=== PATIENT | female | born 1965 | race African-American/Black ===

== ENCOUNTER 2019-03-06 13:56 | Emergency (ER) | payer MEDICAID ==
[~2019-03-06] VITALS: Ht 165.1 cm; Wt 64.0 kg
[2019-03-06] MEDS ORDERED: SODIUM CHLORIDE 0.9% 1,000 ML IV ONE (14:11)
[2019-03-06] MEDS ORDERED: CLINDAMYCIN 600 MG in DEXTROSE 5% WATER 50 ML IV ONE (14:15)
[2019-03-06] MEDS ORDERED: ONDANSETRON HCL 4MG/2ML INJ IV STA (14:50)
[2019-03-06] MEDS ORDERED: MORPHINE SULFATE 4 MG/ML CPJ (NOT FOR IM USE) IV STA (14:50)
[2019-03-06 15:04] LABS: BASOPHILS % 0.5 % (0.0-2.0); HEMATOCRIT. 37.2 % (36.0-48.0); HEMOGLOBIN. 12.2 g/dL (12.0-16.0); LYMPHOCYTES % 17.5 % (20.0-50.0); MEAN CORPUSCULAR VOLUME 88.1 fL (81.0-99.0); MONOCYTES % 14.2 % (2.0-8.0); NEUTROPHILS % 67.8 % (40.0-76.0); PLATELET 228 x1000/uL (130-400); RED BLOOD CELL COUNT 4.22 mill/uL (4.2-5.4); RED CELL DISTRIBUTION WIDTH 19.5 % (11.6-14.6)
[2019-03-06 15:11] LABS: CHLORIDE 106 mEq/L (98-107)
[2019-03-06 15:15] LABS: INR 1.1; PROTHROMBIN TIME 10.9 sec (9.6-11.0)
[2019-03-06] MEDS ORDERED: CLINDAMYCIN 600MG PREMIX 50 ML IV SCH (15:15)
[2019-03-06] MEDS ORDERED: KETOROLAC 15MG/ML VIAL IV ONE (17:15)
[2019-03-06 18:15] VITALS: BP 120/82
[2019-03-06] MEDS ORDERED: IOHEXOL-300 100 ML BOTTLE ONE (19:24)
== END 2019-03-06 18:33 | disposition home or self-care (01) ==
LOC: ER 14:03
DX: K04.7 Periapical abscess without sinus (principal); R68.84 Jaw pain; J45.909 Unspecified asthma, uncomplicated; I10 Essential (primary) hypertension; Z88.3 Allergy status to other anti-infective agents; Z89.9 Acquired absence of limb, unspecified
CPT/HCPCS: 36415; 70491; 80053; 85025; 85610; 96365; 96375; 99284; J1885; J2270; J2405; J3490; J7030; Q9967; J7060

== ENCOUNTER 2019-03-29 18:18 | Emergency (ER) | payer MEDICAID ==
[~2019-03-29] VITALS: Ht 162.6 cm; Wt 49.0 kg
[2019-03-29] MEDS ORDERED: ACETAMINOPHEN WITH CODEINE 300/30MG TABLET PO STA (18:42)
[2019-03-29] MEDS ORDERED: ALBUTEROL (0.083%) 2.5MG/3ML NEB HHN ONE (18:45)
[2019-03-29 21:30] VITALS: BP 115/78
[2019-03-31] MEDS ORDERED: CLIN300C11 MT (15:36)
[2019-03-31] MEDS ORDERED: METO25TA6 PO (15:36)
[2019-03-31] MEDS ORDERED: DIGO125T82 PO (15:36)
[2019-03-31] MEDS ORDERED: FURO-151 PO (15:36)
[2019-03-31] MEDS ORDERED: NITR0.4T SL (15:36)
== END 2019-03-30 01:12 | disposition home or self-care (01) ==
LOC: ER 18:18
DX: S09.8XXA Other specified injuries of head, initial encounter (principal); J44.9 Chronic obstructive pulmonary disease, unspecified; E11.9 Type 2 diabetes mellitus without complications; I11.0 Hypertensive heart disease with heart failure; I50.9 Heart failure, unspecified; I25.2 Old myocardial infarction; Z88.0 Allergy status to penicillin; Z88.1 Allergy status to other antibiotic agents; Z88.6 Allergy status to analgesic agent; Z98.890 Other specified postprocedural states; W01.0XXA Fall on same level from slipping, tripping and stumbling without subsequent striking against object, initial encounter; Y93.89 Activity, other specified; Y92.89 Other specified places as the place of occurrence of the external cause; Y99.8 Other external cause status
CPT/HCPCS: 70450; 71045; 94640; 99284; J7611; Z7610

== ENCOUNTER 2019-03-30 15:16 | Inpatient (IN) | payer MEDICAID ==
[~2019-03-30] VITALS: Ht 165.1 cm; Wt 55.0 kg
[2019-03-30] MEDS ORDERED: ALBUTEROL (0.083%) 2.5MG/3ML NEB HHN STA (15:39)
[2019-03-30 16:30] LABS: BASOPHILS % 0.5 % (0.0-2.0); HEMATOCRIT. 39.5 % (36.0-48.0); HEMOGLOBIN. 12.7 g/dL (12.0-16.0); MEAN CORPUSCULAR HEMOGLOBIN 28.5 pg (28.0-32.0); MEAN CORPUSCULAR VOLUME 88.5 fL (81.0-99.0); MEAN PLATELET VOLUME 10.4 fl (7.4-10.4); MONOCYTES % 11.5 % (2.0-8.0); PLATELET 264 x1000/uL (130-400); RED BLOOD CELL COUNT 4.47 mill/uL (4.2-5.4); RED CELL DISTRIBUTION WIDTH 19.1 % (11.6-14.6)
[2019-03-30] MEDS ORDERED: MORPHINE SULFATE 4 MG/ML CPJ (NOT FOR IM USE) IV ONE (16:30)
[2019-03-30 16:34] LABS: CHLORIDE 109 mEq/L (98-107)
[2019-03-30] MEDS ORDERED: DEXTROSE 50% WATER 50ML SYRINGE IV ONE ×2 (16:50→17:00)
[2019-03-30] MEDS ORDERED: DEXT 5%/LACTATED RINGERS 1,000 ML IV ONE (17:00)
[2019-03-30] MEDS ORDERED: ONDANSETRON HCL 4MG/2ML INJ IV PRN (20:00)
[2019-03-30] MEDS ORDERED: CLONIDINE 0.1MG TABLET PO PRN (20:00)
[2019-03-30] MEDS ORDERED: ACETAMINOPHEN 325MG TABLET PO PRN (20:00)
[2019-03-30] MEDS ORDERED: DOCUSATE SODIUM 100MG CAPSULE PO PRN (20:00)
[2019-03-30] MEDS ORDERED: MAGNESIUM/ALUMINUM HYDROXIDE/SIMETHICONE 30ML UDC PO PRN (20:00)
[2019-03-30] MEDS ORDERED: DEXTROSE 50% WATER 50ML SYRINGE IV PRN ×2 (20:00)
[2019-03-30] MEDS ORDERED: IPRATROPIUM/ALBUTEROL 0.5-3(2.5)MG/3ML NEB NEB PRN (20:00)
[2019-03-30] MEDS: HYDROCODONE/ACETAMINOPHEN 5/325MG TABLET PO PRN (20:44)
[2019-03-30 22:13] VITALS: BP 105/69
[2019-03-30] MEDS: DIPHENHYDRAMINE 50MG/ML VIAL IV PRN (22:26)
[2019-03-30] MEDS ORDERED: INFLUENZA VIRUS VACCINE(AFLURIA) 0.5ML SYR IM ONE (22:30)
[2019-03-30 23:13] LABS: CLARITY URINE CLEAR (CLEAR); COLOR URINE YELLOW (YELLOW); KETONES URINE NEGATIVE (NEGATIVE); LEUKOCYTE ESTERASE URINE NEGATIVE (NEGATIVE); NITRITE URINE NEGATIVE (NEGATIVE); OCCULT BLOOD URINE NEGATIVE (NEGATIVE); PROTEIN URINE NEGATIVE (NEGATIVE)
[2019-03-30 23:39] LABS: *AMPHETAMINES SCREEN URINE NEGATIVE (NEGATIVE); *BARBITURATES SCREEN URINE NEGATIVE (NEGATIVE); *BENZODIAZEPINES SCREEN URINE NEGATIVE (NEGATIVE); *COCAINE SCREEN URINE NEGATIVE (NEGATIVE)
[2019-03-30 23:41] LABS: CANNABINOID URINE SCREEN NEGATIVE (NEGATIVE); METHADONE URINE SCREEN NEGATIVE (NEGATIVE); OPIATES URINE SCREEN PRESUMTIVE POSITIVE (NEGATIVE); PHENCYCLIDINE URINE SCREEN NEGATIVE (NEGATIVE)
[2019-03-31] VITALS: BP 102/73
[2019-03-31 04:00] VITALS: BP 120/86
[2019-03-31] MEDS: HYDROCODONE/ACETAMINOPHEN 5/325MG TABLET PO PRN ×3 (04:25→19:00)
[2019-03-31] MEDS: DIPHENHYDRAMINE 50MG/ML VIAL IV PRN ×3 (04:58→20:48)
[2019-03-31] MEDS: BLOOD SUGAR DIAGNOSTIC STRIP TEST SCH ×4 (06:24→21:49)
[2019-03-31] MEDS: INSULIN LISPRO 100 UNITS/ML SUBCUT SCH ×4 (06:43→21:00)
[2019-03-31 08:00] VITALS: BP 116/88
[2019-03-31 08:19] LABS: BASOPHILS % 0.4 % (0.0-2.0); HEMATOCRIT. 37.6 % (36.0-48.0); LYMPHOCYTES % 30.2 % (20.0-50.0); MEAN CORPUSCULAR HEMOGLOBIN 28.3 pg (28.0-32.0); MEAN CORPUSCULAR VOLUME 88.5 fL (81.0-99.0); MEAN PLATELET VOLUME 9.9 fl (7.4-10.4); MONOCYTES % 11.3 % (2.0-8.0); NEUTROPHILS % 58.1 % (40.0-76.0); PLATELET 198 x1000/uL (130-400); RED BLOOD CELL COUNT 4.25 mill/uL (4.2-5.4); RED CELL DISTRIBUTION WIDTH 19.2 % (11.6-14.6)
[2019-03-31] MEDS: FUROSEMIDE 40MG/4ML VIAL IVP SCH (08:32)
[2019-03-31 09:18] LABS: BG BASE EXCESS -1.2 mmol/L (-2.0-2.0); BG CARBOXYHEMOGLOBIN 1.4 % (0.5-1.5); BG DEOXYHEMOGLOBIN 8.6 % (0.0-5.0); BG FRACTION INSPIRED OXYGEN 21; BG METHEMOGLOBIN 0.3 % (0.0-1.5); BG OXYGEN SATURATION 91.3 % (92.0-98.5); BG OXYHEMOGLOBIN 89.7 % (94.0-97.0); BG PCO2 41.9 mmHg (35.0-45.0); BG PH 7.375 (7.350-7.450); BG PO2 64.6 mmHg (75.0-100.0); BG SAMPLE SITE LEFT RADIAL; BG TOTAL HEMOGLOBIN 13.4 g/dL (12.0-18.0); BG VENT MODE ROOM AIR
[2019-03-31 10:07] LABS: CHLORIDE 109 mEq/L (98-107)
[2019-03-31 10:17] LABS: PHOSPHORUS 3.8 mg/dL (2.5-4.9)
[2019-03-31 10:18] LABS: LDL CHOLESTEROL 106 mg/dL (5-100)
[2019-03-31 10:20] LABS: HDL CHOLESTEROL 62 mg/dL (40-59)
[2019-03-31 12:00] VITALS: BP 110/71
[2019-03-31] MEDS ORDERED: MAGNESIUM 1 G PREMIX 100 ML IV SCH (12:00)
[2019-03-31] MEDS ORDERED: NITR0.4T SL (15:36)
[2019-03-31] MEDS ORDERED: CLIN300C11 MT (15:36)
[2019-03-31] MEDS ORDERED: DIGO125T82 PO (15:36)
[2019-03-31] MEDS ORDERED: METO25TA6 PO (15:36)
[2019-03-31] MEDS ORDERED: FURO-151 PO (15:36)
[2019-03-31 16:00] VITALS: BP 105/75
[2019-03-31] MEDS ORDERED: BUDESONIDE 0.5MG/2ML NEB HHN SCH (16:00)
[2019-03-31] MEDS: ASPIRIN 81MG EC TABLET PO SCH (17:08)
[2019-03-31] MEDS ORDERED: DIGOXIN 125MCG TABLET PO SCH (18:00)
[2019-03-31] MEDS ORDERED: IPRATROPIUM/ALBUTEROL 0.5-3(2.5)MG/3ML NEB HHN SCH (18:00)
[2019-03-31 20:00] VITALS: BP 108/81
[2019-03-31] MEDS: CARVEDILOL 3.125 MG TABLET PO SCH (20:47)
[2019-03-31] MEDS ORDERED: ATORVASTATIN CALCIUM 20MG TABLET PO SCH (21:00)
[2019-04-01] VITALS: BP 121/91
[2019-04-01 04:00] VITALS: BP 122/88
[2019-04-01] MEDS: BLOOD SUGAR DIAGNOSTIC STRIP TEST SCH ×2 (06:08→12:20)
[2019-04-01] MEDS: HYDROCODONE/ACETAMINOPHEN 5/325MG TABLET PO PRN (06:11)
[2019-04-01 06:58] LABS: BASOPHILS % 0.6 % (0.0-2.0); HEMATOCRIT. 38.6 % (36.0-48.0); HEMOGLOBIN. 12.7 g/dL (12.0-16.0); LYMPHOCYTES % 18.7 % (20.0-50.0); MEAN CORPUSCULAR HEMOGLOBIN 28.5 pg (28.0-32.0); MEAN PLATELET VOLUME 9.4 fl (7.4-10.4); MONOCYTES % 10.7 % (2.0-8.0); PLATELET 220 x1000/uL (130-400); RED BLOOD CELL COUNT 4.43 mill/uL (4.2-5.4); RED CELL DISTRIBUTION WIDTH 19.4 % (11.6-14.6)
[2019-04-01 07:03] LABS: CHLORIDE 106 mEq/L (98-107)
[2019-04-01] MEDS: INSULIN LISPRO 100 UNITS/ML SUBCUT SCH ×2 (07:50→12:50)
[2019-04-01 08:18] VITALS: BP 181/143
[2019-04-01] MEDS: FUROSEMIDE 40MG/4ML VIAL IVP SCH (08:34)
[2019-04-01] MEDS: CARVEDILOL 3.125 MG TABLET PO SCH (08:36)
[2019-04-01] MEDS: ASPIRIN 81MG EC TABLET PO SCH (08:37)
[2019-04-01] MEDS ORDERED: LISINOPRIL 5MG TABLET PO SCH (09:00)
[2019-04-01] MEDS ORDERED: SPIRONOLACTONE 25MG TABLET PO SCH (09:00)
[2019-04-01] MEDS ORDERED: ATOR20TA PO (12:02)
[2019-04-01] MEDS ORDERED: PULM50 HHN (12:02)
[2019-04-01 12:16] VITALS: BP 111/83
[2019-04-01 16:47] VITALS: BP 100/68
[2019-04-01 17:28] VITALS: BP 110/68
== END 2019-04-01 18:39 | disposition home or self-care (01) | DRG 133 ==
LOC: ER 15:16 → 6WST 18:01 → ENRESERV 20:57
PROVIDERS: ADMIT Family Medicine Adult Medicine; ATTEND Family Medicine Adult Medicine
DX: J96.01 Acute respiratory failure with hypoxia (principal); I50.23 Acute on chronic systolic (congestive) heart failure; I27.29 Other secondary pulmonary hypertension; E11.51 Type 2 diabetes mellitus with diabetic peripheral angiopathy without gangrene; E11.649 Type 2 diabetes mellitus with hypoglycemia without coma; I95.9 Hypotension, unspecified; I11.0 Hypertensive heart disease with heart failure; E44.1 Mild protein-calorie malnutrition; E83.42 Hypomagnesemia; I42.0 Dilated cardiomyopathy; I25.10 Atherosclerotic heart disease of native coronary artery without angina pectoris; I34.0 Nonrheumatic mitral (valve) insufficiency; J45.909 Unspecified asthma, uncomplicated; R07.89 Other chest pain; R74.0 Nonspecific elevation of levels of transaminase and lactic acid dehydrogenase [LDH]; R07.81 Pleurodynia; I95.2 Hypotension due to drugs; T46.3X5A Adverse effect of coronary vasodilators, initial encounter; J44.9 Chronic obstructive pulmonary disease, unspecified; Z82.49 Family history of ischemic heart disease and other diseases of the circulatory system; Z89.512 Acquired absence of left leg below knee; Z79.899 Other long term (current) drug therapy; I25.2 Old myocardial infarction; Z88.0 Allergy status to penicillin; Z88.8 Allergy status to other drugs, medicaments and biological substances; Z87.891 Personal history of nicotine dependence; Y92.89 Other specified places as the place of occurrence of the external cause; Z68.20 Body mass index [BMI] 20.0-20.9, adult
CPT/HCPCS: 36415; 36600; 71045; 78582; 80048; 80061; 80076; 80305; 81003; 82375; 82805; 82962; 83036; 83735; 83880; 84100; 84443; 84484; 85379; 90686; 93005; 93970; 94640; 97162; 99285; A9558; J1200; J1815; J1940; J2270; J3475; J7121; J7611; J7620; J7626

== ENCOUNTER 2019-09-13 14:03 | Emergency (ER) | payer MEDICAID ==
[~2019-09-13] VITALS: Ht 162.6 cm; Wt 59.0 kg
[~2019-09-13 14:03] MED LIST: ATOR20TA PO; CLIN300C11 MT; DIGO125T80 PO; FURO-151 PO; METO25TA6 PO; NITR0.4T SL; PULM50 HHN
[2019-09-13] MEDS ORDERED: IPRATROPIUM BROMIDE (0.02%) 0.5MG/2.5ML NEB HHN STA (14:59)
[2019-09-13] MEDS ORDERED: ALBUTEROL (0.083%) 2.5MG/3ML NEB HHN STA (14:59)
[2019-09-13] MEDS ORDERED: ASPIRIN 81MG TABLET PO ONE (15:00)
[2019-09-13] MEDS ORDERED: KETOROLAC 30MG/ML VIAL IV ONE (15:00)
[2019-09-13 15:44] LABS: BASOPHILS % 0.4 % (0.0-2.0); HEMATOCRIT. 50.3 % (36.0-48.0); HEMOGLOBIN. 16.3 g/dL (12.0-16.0); LYMPHOCYTES % 24.2 % (20.0-50.0); MEAN CORPUSCULAR HEMOGLOBIN 29.6 pg (28.0-32.0); MEAN CORPUSCULAR VOLUME 91.4 fL (81.0-99.0); MEAN PLATELET VOLUME 9.8 fl (7.4-10.4); MONOCYTES % 12.5 % (2.0-8.0); NEUTROPHILS % 62.9 % (40.0-76.0); PLATELET 232 x1000/uL (130-400); RED CELL DISTRIBUTION WIDTH 16.4 % (11.6-14.6)
[2019-09-13 15:45] LABS: CHLORIDE 100 mEq/L (98-107)
[2019-09-13] MEDS ORDERED: SODIUM CHLORIDE 0.9% 500 ML IV ONE (17:30)
[2019-09-13 18:52] VITALS: BP 117/52
== END 2019-09-13 19:18 | disposition home or self-care (01) ==
LOC: ER 14:03
DX: R07.89 Other chest pain (principal); J02.9 Acute pharyngitis, unspecified; E86.0 Dehydration; I11.0 Hypertensive heart disease with heart failure; I50.9 Heart failure, unspecified; J44.9 Chronic obstructive pulmonary disease, unspecified; I25.2 Old myocardial infarction; Z89.519 Acquired absence of unspecified leg below knee; E11.9 Type 2 diabetes mellitus without complications; Z88.0 Allergy status to penicillin; Z88.6 Allergy status to analgesic agent
CPT/HCPCS: 36415; 71045; 80053; 83880; 84484; 85025; 93005; 94640; 96361; 96374; 99285; J1885; Z7610